=== PATIENT | male | born 1955 | race Caucasian/White ===

== ENCOUNTER → 2016-09-23 | Outpatient (CLI) | payer OTHER ==
[~2016-09-23] MED LIST: ALPR-138 PO; ASPI81TA82 PO; BUPR150T3 PO; LISI-360 PO; METO25 PO; NAPR500 PO; TOPR50TA PO; VALT500T PO
[2016-09-23 15:34] LABS: HEMATOCRIT 45.9 % (39.0-51.0); MEAN CELL VOLUME 89.3 FL (80.0-100.0); MEAN CORPUSCULAR HEMOGLOBIN 29.1 PG (27.0-34.0); MEAN CORPUSCULAR HGB CONC 32.6 % (32.0-36.0); PLATELET COUNT 191 TH/MM3 (150-450); RED BLOOD COUNT 5.14 MIL/MM3 (4.50-5.90); RED CELL DISTRIBUTION WIDTH 13.4 % (11.6-17.2); REVIEW FLAG FINAL; WHITE BLOOD COUNT 5.4 TH/MM3 (4.0-11.0)
[2016-09-23 16:58] LABS: ALT (GPT) 30 U/L (12-78); ANION GAP 7 MEQ/L (5-15); AST (GOT) 21 U/L (15-37); BICARBONATE 27.6 MEQ/L (21.0-32.0); BLOOD UREA NITROGEN 18 MG/DL (7-18); CHLORIDE 106 MEQ/L (98-107); GLOMERULAR FILTRATION RATE 68 ML/MIN (>89); GLUCOSE,FASTING 94 MG/DL (74-99); POTASSIUM 4.4 MEQ/L (3.5-5.1); SODIUM (NA) 141 MEQ/L (136-145)
[2016-09-23 17:07] LABS: ALKALINE PHOSPHATASE 55 U/L (45-117); FREE T4 0.97 NG/DL (0.76-1.46); HDL CHOLESTEROL 41.8 MG/DL (40.0-60.0); LDL CHOLESTEROL 123 MG/DL (0-99); TOTAL BILIRUBIN ADULT 0.4 MG/DL (0.2-1.0)
== END ==
LOC: PLAB 12:23
PROVIDERS: ATTEND Family Medicine
DX: I10 Essential (primary) hypertension (principal); E78.5 Hyperlipidemia, unspecified; I48.91 Unspecified atrial fibrillation; R73.01 Impaired fasting glucose; M17.9 Osteoarthritis of knee, unspecified; Z12.5 Encounter for screening for malignant neoplasm of prostate; Z68.31 Body mass index [BMI] 31.0-31.9, adult
CPT/HCPCS: 80053; 80061; 84153; 84439; 84443; 85027

== ENCOUNTER → 2017-02-04 | Outpatient (CLI) | payer OTHER ==
[~2017-02-04] MED LIST changes: +ALPR0.25 PO; +ALPR0.5T3 PO; +ASPI325T PO; +ASPI81CH PO; +BUPR100T4 PO; +BUPR150CR PO; +CIAL20TA PO; +LISI10TA3 PO; +METO50TA PO; +MULTTAB67 PO; +NAPR500T PO; +TIMO0.5S30 RIGHT EYE; +VALA500T PO
[2017-02-04 16:18] LABS: ANION GAP 5 MEQ/L (5-15); AST (GOT) 22 U/L (15-37); BICARBONATE 28.6 MEQ/L (21.0-32.0); BLOOD UREA NITROGEN 15 MG/DL (7-18); CHLORIDE 107 MEQ/L (98-107); GLOMERULAR FILTRATION RATE 69 ML/MIN (>89); GLUCOSE,FASTING 94 MG/DL (74-99); POTASSIUM 4.6 MEQ/L (3.5-5.1); SODIUM (NA) 141 MEQ/L (136-145)
[2017-02-04 16:19] LABS: HEMATOCRIT 43.6 % (39.0-51.0); MEAN CELL VOLUME 90.4 FL (80.0-100.0); MEAN CORPUSCULAR HEMOGLOBIN 29.5 PG (27.0-34.0); MEAN CORPUSCULAR HGB CONC 32.6 % (32.0-36.0); PLATELET COUNT 214 TH/MM3 (150-450); RED BLOOD COUNT 4.83 MIL/MM3 (4.50-5.90); RED CELL DISTRIBUTION WIDTH 13.8 % (11.6-17.2); REVIEW FLAG FINAL; WHITE BLOOD COUNT 5.5 TH/MM3 (4.0-11.0)
[2017-02-04 16:29] LABS: ALKALINE PHOSPHATASE 61 U/L (45-117); ALT (GPT) 36 U/L (12-78); HDL CHOLESTEROL 39.4 MG/DL (40.0-60.0); LDL CHOLESTEROL 113 MG/DL (0-99); TOTAL BILIRUBIN ADULT 0.4 MG/DL (0.2-1.0)
== END ==
LOC: PLAB 11:58
PROVIDERS: ATTEND Family Medicine
DX: I10 Essential (primary) hypertension (principal); E78.5 Hyperlipidemia, unspecified; I48.91 Unspecified atrial fibrillation; R73.01 Impaired fasting glucose; M17.9 Osteoarthritis of knee, unspecified; Z68.30 Body mass index [BMI] 30.0-30.9, adult
CPT/HCPCS: 80053; 80061; 84443; 85027

== ENCOUNTER 2017-02-17 10:10 | Emergency (ER) | payer OTHER ==
[~2017-02-17] VITALS: Ht 182.9 cm; Wt 100.0 kg
[~2017-02-17 10:10] MED LIST changes: -ALPR0.25 PO; -ALPR0.5T3 PO; -ASPI325T PO; -ASPI81CH PO; -BUPR100T4 PO; -BUPR150CR PO; -CIAL20TA PO; -LISI10TA3 PO; -METO50TA PO; -MULTTAB67 PO; -NAPR500T PO; -TIMO0.5S30 RIGHT EYE; -VALA500T PO
[2017-02-17 10:12] VITALS: BP 174/93; PULSE 73; RESP 18; TEMP 97.5; O2SAT 97
[2017-02-17] MEDS ORDERED: NAPR500T PO (10:26)
[2017-02-17] MEDS ORDERED: CIAL20TA PO (10:26)
[2017-02-17] MEDS ORDERED: BUPR100T4 PO (10:26)
[2017-02-17] MEDS ORDERED: METO50TA PO (10:26)
[2017-02-17] MEDS ORDERED: LISI10TA3 PO (10:26)
[2017-02-17] MEDS ORDERED: ASPI81CH PO (10:26)
[2017-02-17] MEDS ORDERED: ALPR0.5T3 PO (10:26)
[2017-02-17] MEDS ORDERED: TIMO0.5S30 RIGHT EYE (10:26)
[2017-02-17] MEDS ORDERED: SODIUM CHLORIDE 0.9% FLUSH 10 ML FLUSH IVF PRN (10:30)
[2017-02-17 10:44] VITALS: RESP 17; O2SAT 99
[2017-02-17 10:46] VITALS: BP_SYST 143; BP_SYST 151; BP_DIAS 84; BP_DIAS 85; PULSE 66; RESP 17; O2SAT 99
--- NOTE | 2017-02-17 10:48 | PD ---
HPI Chief Complaint: Cardiac Complaint Time Seen by Provider: 10:46 Travel History International Travel<30 days: No Contact w/Intl Traveler<30days: No Traveled to known affect area: No History of Present Illness HPI 61-year-old male patient with history of hypertension, A. fib, status post ablation in 2012, presents to the ER today because he's had several days' history of intermittent palpitations, feels like he has an abnormal heartbeat here in their every few minutes. He denies any chest pains, shortness of breath , dizziness, or any other symptoms. He states he has been working outside in the past few days and thinks that may be a trigger. Modifying Factors: None Associated Signs & Symptoms: Palpitations Risk Factors: None PFSH Past Medical History Hx Anticoagulant Therapy: Yes (asa) Atrial Fibrillation: Yes (CARDIAC ABLATION) Anxiety: Yes Depression: Yes Cardiovascular Problems: Yes (A-FIB) Chest Pain: No Diminished Hearing: No Gastrointestinal Disorders: No Hypertension: Yes Integumentary: No Immunizations Current: Yes Seizures: Yes Thyroid Disease: No Tetanus Vaccination: < 5 Years Influenza Vaccination: No : 0 Past Surgical History Cholecystectomy: Yes Eye Surgery: Yes (RIGHT EYE CATARACT ) Hysterectomy: Yes (htn) Neurologic Surgery: Yes (DEPRESSED SKULL FX 1961) Other Surgery: Yes (GALLBLADDER) Social History Alcohol Use: Yes (3 BEERS MOST DAYS) Tobacco Use: No (quit ) Substance Use: No Allergies-Medications (Allergen,Severity, Reaction): Coded Allergies: No Known Allergies (Unverified , 02/17/17) Reported Meds & Prescriptions Reported Meds & Active Scripts Active Reported Cialis (Tadalafil) 20 Mg Tab 20 Mg PO DAILY PRN Do not exceed 1 dose/day. Timolol Opth Drops 0.5 % Soln 1 Drop RIGHT EYE BID Naproxen 500 Mg Tab 500 Mg PO BID Alprazolam 0.5 Mg Tab 0.5 Mg PO HS PRN Aspirin 81 Mg Chew 81 Mg PO DAILY Bupropion HCl 100 Mg Tab 100 Mg PO BID Lisinopril 10 Mg Tab 10 Mg PO DAILY Metoprolol Tartrate 50 Mg Tab 50 Mg PO DAILY Review of Systems Except as stated in HPI: all other systems reviewed are Neg Physical Exam Narrative GENERAL: Pleasant well-developed male patient currently in no acute distress at awake and oriented 3. SKIN: Focused skin assessment warm/dry. HEAD: Atraumatic. Normocephalic. EYES: Pupils equal and round. No scleral icterus. No injection or drainage. ENT: No nasal bleeding or discharge. Mucous membranes pink and moist. NECK: Trachea midline. No JVD. CARDIOVASCULAR: Regular rate and rhythm. No murmur appreciated. Pulses are present and equal bilaterally. RESPIRATORY: No accessory muscle use. Clear to auscultation. Breath sounds equal bilaterally. GASTROINTESTINAL: Abdomen soft, non-tender, nondistended. Hepatic and splenic margins not palpable. MUSCULOSKELETAL: No obvious deformities. No clubbing. No cyanosis. No edema. NEUROLOGICAL: Awake and alert. No obvious cranial nerve deficits. Motor grossly within normal limits. Normal speech. PSYCHIATRIC: Appropriate mood and affect; insight and judgment normal. Data Data Last Documented VS Vital Signs Date Time Temp Pulse Resp B/P (MAP) Pulse Ox O2 Delivery O2 Flow Rate FiO2 02/17/17 10:46 66 17 151/84 (106) 99 Room Air 143/85 (104) 02/17/17 10:12 97.5 Orders Orders Electrocardiogram (02/17/17 ) Electrocardiogram (02/17/17 10:26) Ckmb (Isoenzyme) Profile (02/17/17 10:26) Complete Blood Count With Diff (02/17/17 10:26) Comprehensive Metabolic Panel (02/17/17 10:26) Magnesium (Mg) (02/17/17 10:26) Prothrombin Time / Inr (Pt) (02/17/17 10:26) Act Partial Throm Time (Ptt) (02/17/17 10:26) Troponin I (02/17/17 10:26) Chest, Single Ap (02/17/17 10:26) Ecg Monitoring (02/17/17 10:26) Bilateral Bp Monitoring (02/17/17 10:26) Iv Access Insert/Monitor (02/17/17 10:26) Oximetry (02/17/17 10:26) Oxygen Administration (02/17/17 10:26) Sodium Chloride 0.9% Flush (Ns Flush) (02/17/17 10:30) Labs Laboratory Tests Test 02/17/17 10:42 White Blood Count 6.6 TH/MM3 Red Blood Count 4.86 MIL/MM3 Hemoglobin 14.6 GM/DL Hematocrit 43.6 % Mean Corpuscular Volume 89.7 FL Mean Corpuscular Hemoglobin 30.0 PG Mean Corpuscular Hemoglobin Concent 33.4 % Red Cell Distribution Width 13.2 % Platelet Count 259 TH/MM3 Mean Platelet Volume 8.5 FL Neutrophils (%) (Auto) 70.1 % Lymphocytes (%) (Auto) 18.8 % Monocytes (%) (Auto) 6.4 % Eosinophils (%) (Auto) 4.0 % Basophils (%) (Auto) 0.7 % Neutrophils # (Auto) 4.6 TH/MM3 Lymphocytes # (Auto) 1.2 TH/MM3 Monocytes # (Auto) 0.4 TH/MM3 Eosinophils # (Auto) 0.3 TH/MM3 Basophils # (Auto) 0.0 TH/MM3 CBC Comment DIFF FINAL Differential Comment Prothrombin Time 11.2 SEC Prothromb Time International Ratio 1.0 RATIO Activated Partial Thromboplast Time 29.2 SEC Blood Urea Nitrogen 19 MG/DL Creatinine 1.17 MG/DL Random Glucose 110 MG/DL Total Protein 7.5 GM/DL Albumin 4.3 GM/DL Calcium Level 8.9 MG/DL Magnesium Level 2.3 MG/DL Alkaline Phosphatase 64 U/L Aspartate Amino Transf (AST/SGOT) 17 U/L Alanine Aminotransferase (ALT/SGPT) 30 U/L Total Bilirubin 0.5 MG/DL Sodium Level 138 MEQ/L Potassium Level 3.8 MEQ/L Chloride Level 105 MEQ/L Carbon Dioxide Level 26.3 MEQ/L Anion Gap 7 MEQ/L Estimat Glomerular Filtration Rate 63 ML/MIN Total Creatine Kinase 85 U/L Troponin I 0.02 NG/ML MDM Medical Decision Making Medical Screen Exam Complete: Yes Emergency Medical Condition: Yes Medical Record Reviewed: Yes Interpretation(s) EKG shows NSR, no ST elevation or depression, and no arrhythmias. No significant T-wave inversions. Laboratory Tests Test 02/17/17 10:42 Neutrophils (%) (Auto) 70.1 % (16.0-70.0) Blood Urea Nitrogen 19 MG/DL (7-18) Random Glucose 110 MG/DL (74-106) Estimat Glomerular Filtration Rate 63 ML/MIN (>89) Differential Diagnosis palpitations: Dysrhythmias versus dehydration versus electrolyte abnormalities Narrative Course Lab work, chest x-ray, and EKG did not show any signs of abnormal issues. There are no significant signs of dysrhythmias on EKG. Vital signs are stable in the ER. At this point, I do not see any significant dysrhythmias or any obvious triggers for this issue. Patient did not have any further episodes while in the ER and telemetry was essentially unremarkable while he was here. My plan would be to release him with follow-up to primary care physician and cardiology. Return for any worsening in symptoms as necessary. Drink plenty of fluids, stay hydrated, and avoid caffeine and alcoholic beverages for now. The plan was discussed with the patient and he states understanding. Diagnosis Primary Impression: Palpitations Disposition: 01 DISCHARGE HOME Condition: Stable Gómez Manning MD Feb 17, 2017 10:48
--- NOTE | 2017-02-17 10:55 | RADRPT ---
EXAM DATE/TIME: 02/17/2017 10:46 [facility] COMPARISON: No previous studies available for comparison. INDICATIONS : Palpitations. MEDICAL HISTORY : atrial fibrillation, high bp SURGICAL HISTORY : ablasion ENCOUNTER: Initial ACUITY: 1 day PAIN SCORE: 0/10 LOCATION: Bilateral chest FINDINGS: A single view of the chest demonstrates the lungs to be symmetrically aerated without evidence of mas s, infiltrate or effusion. The cardiomediastinal contours are unremarkable. Osseous structures are intact. CONCLUSION: 1. No acute cardiopulmonary disease. Edgardo Cabrera MD on February 17, 2017 at 10:53 Board Certified Radiologist. This report was verified electronically.
[2017-02-17 11:03] LABS: AUTOMATED NEUTROPHIL # 4.6 TH/MM3 (1.8-7.7); BASOPHIL % 0.7 % (0.0-2.0); EOSINOPHIL # 0.3 TH/MM3 (0-0.4); HEMATOCRIT 43.6 % (39.0-51.0); HEMO FLAGS DIFF FINAL; LYMPH % 18.8 % (9.0-44.0); LYMPHOCYTE # 1.2 TH/MM3 (1.0-4.8); MEAN CELL VOLUME 89.7 FL (80.0-100.0); MEAN CORPUSCULAR HGB CONC 33.4 % (32.0-36.0); MONO % 6.4 % (0.0-8.0); NEUT % 70.1 % (16.0-70.0); PLATELET COUNT 259 TH/MM3 (150-450); RED BLOOD COUNT 4.86 MIL/MM3 (4.50-5.90); RED CELL DISTRIBUTION WIDTH 13.2 % (11.6-17.2); WHITE BLOOD COUNT 6.6 TH/MM3 (4.0-11.0)
[2017-02-17 11:10] LABS: APTT (PATIENT) 29.2 SEC (24.3-30.1); PROTHROMBIN TIME - PATIENT 11.2 SEC (9.8-11.6)
[2017-02-17 11:20] LABS: ALT (GPT) 30 U/L (12-78); ANION GAP 7 MEQ/L (5-15); AST (GOT) 17 U/L (15-37); BICARBONATE 26.3 MEQ/L (21.0-32.0); BLOOD UREA NITROGEN 19 MG/DL (7-18); CHLORIDE 105 MEQ/L (98-107); GLOMERULAR FILTRATION RATE 63 ML/MIN (>89); MAGNESIUM 2.3 MG/DL (1.5-2.5); POTASSIUM 3.8 MEQ/L (3.5-5.1); SODIUM (NA) 138 MEQ/L (136-145)
[2017-02-17 11:23] LABS: ALKALINE PHOSPHATASE 64 U/L (45-117); TOTAL BILIRUBIN ADULT 0.5 MG/DL (0.2-1.0)
[2017-02-17 11:24] LABS: CREATINE KINASE 85 U/L (39-308)
[2017-02-17 11:55] VITALS: BP 136/81; TEMP 97.8
--- NOTE | 2017-02-18 14:41 | EKG ---
Date Performed: 02/17/2017 Time Performed: 10:32:17 PTAGE: 61 years EKG: Sinus rhythm BORDERLINE ECG PREVIOUS TRACING : 09/03/2012 05.24 DOCTOR: Dusty James Interpretating Date/Time 02/18/2017 14:39:16
== END 2017-02-17 11:55 | disposition home or self-care (01) ==
LOC: NEPC 10:10
DX: R00.2 Palpitations (principal); I10 Essential (primary) hypertension; I48.91 Unspecified atrial fibrillation; Z79.899 Other long term (current) drug therapy; Z87.891 Personal history of nicotine dependence
CPT/HCPCS: 71010; 80053; 82550; 83735; 84484; 85025; 85610; 85730; 93005

== ENCOUNTER 2017-02-27 09:53 | Day surgery (SDC) | payer OTHER ==
[~2017-02-27 09:53] MED LIST changes: -ALPR-138 PO; +ALPR0.5T3 PO; +ASPI81CH PO; -ASPI81TA82 PO; +BUPR100T4 PO; -BUPR150T3 PO; +CIAL20TA PO; -LISI-360 PO; +LISI10TA3 PO; -METO25 PO; +METO50TA PO; -NAPR500 PO; +NAPR500T PO; +TIMO0.5S30 RIGHT EYE; -TOPR50TA PO; -VALT500T PO
[2017-02-27] MEDS ORDERED: VALA500T PO (10:38)
[2017-02-27] MEDS ORDERED: ALPR0.25 PO (10:38)
[2017-02-27] MEDS ORDERED: ASPI325T PO (10:38)
[2017-02-27] MEDS ORDERED: MULTTAB67 PO (10:38)
[2017-02-27] MEDS ORDERED: BUPR150CR PO (10:39)
[2017-02-27] MEDS ORDERED: POVIDONE IODINE 5% (ANTISEPSIS KIT) 4 APPLICATIONS EACH NARE SCH (10:45)
[2017-02-27] MEDS ORDERED: MUPIROCIN 2% OINT 1 APPLIC/GM SYR NASAL SCH (10:45)
[2017-02-27] MEDS ORDERED: ceFAZolin 2 GM PREMIX 50 ML IV SCH (10:45)
[2017-02-27] MEDS ORDERED: CHLORHEXIDINE GLUCONATE 2 % 1 PACK (2 CLOTHS) TOPICAL SCH (10:45)
[2017-02-27] MEDS ORDERED: NS 1000 ML IV SCH (11:00)
--- NOTE | 2017-02-27 12:45 | MA ---
cc: VICTOR HUGO EDWARDS MD DATE: 02/27/2017 PROCEDURE Loop recorder insertion. PERFORMING PHYSICIAN Dr. Victor Hugo Edwards. INDICATION Atrial fibrillation management post ablation. DESCRIPTION OF PROCEDURE The patient was brought to the DOC unit in the postabsorptive state. After informed consent was obtained a [employer] LINQ loop recorder was inserted subcutaneously in the left chest. The patient tolerated the procedure well without any apparent complications. Tachybrady pause and atrial fibrillation detection was enabled. The initial R-wave was 0.5 mV. The serial number is [id number]. MD ERNIE PatinoH/ELHAM /12:29 PM /12:40 PM
== END 2017-02-27 13:58 | disposition home or self-care (01) ==
LOC: HDOC 09:53 → HDIC 09:53 → HDOC 13:58
PROVIDERS: ATTEND Nuclear Medicine Nuclear Cardiology
DX: I48.91 Unspecified atrial fibrillation (principal)
CPT/HCPCS: 33282; C1764; J0690

== ENCOUNTER → 2017-06-01 | Outpatient (CLI) | payer OTHER ==
[~2017-06-01] MED LIST changes: +ALPR0.25 PO; -ALPR0.5T3 PO; +ASPI-183 PO; -ASPI81CH PO; -BUPR100T4 PO; +BUPR150CR PO; -CIAL20TA PO; +MULTTAB67 PO; -NAPR500T PO; +NAPR500T2 PO; +VALA500T PO
[2017-06-01 13:53] LABS: HEMATOCRIT 45.7 % (39.0-51.0); HEMOGLOBIN 15.7 GM/DL (13.0-17.0); MEAN CELL VOLUME 89.2 FL (80.0-100.0); MEAN CORPUSCULAR HEMOGLOBIN 30.5 PG (27.0-34.0); MEAN CORPUSCULAR HGB CONC 34.2 % (32.0-36.0); MEAN PLATELET VOLUME 8.9 FL (7.0-11.0); PLATELET COUNT 215 TH/MM3 (150-450); RED BLOOD COUNT 5.13 MIL/MM3 (4.50-5.90); RED CELL DISTRIBUTION WIDTH 13.6 % (11.6-17.2); WHITE BLOOD COUNT 7.1 TH/MM3 (4.0-11.0)
[2017-06-01 14:14] LABS: ALBUMIN 4.5 GM/DL (3.4-5.0); AST (GOT) 17 U/L (15-37); BICARBONATE 28.9 MEQ/L (21.0-32.0); BLOOD UREA NITROGEN 17 MG/DL (7-18); CHLORIDE 107 MEQ/L (98-107); CHOLESTEROL 196 MG/DL (120-200); CREATININE 1.16 MG/DL (0.60-1.30); GLOMERULAR FILTRATION RATE 64 ML/MIN (>89); GLUCOSE,FASTING 92 MG/DL (74-99); SODIUM (NA) 143 MEQ/L (136-145); TRIGLYCERIDES 116 MG/DL (42-150)
[2017-06-01 14:23] LABS: ALKALINE PHOSPHATASE 62 U/L (45-117); ALT (GPT) 32 U/L (12-78); CHOLESTEROL/ HDL RATIO 4.63 RATIO; FREE T4 1.03 NG/DL (0.76-1.46); HDL CHOLESTEROL 42.3 MG/DL (40.0-60.0); LDL CHOLESTEROL 131 MG/DL (0-99); TOTAL BILIRUBIN ADULT 0.5 MG/DL (0.2-1.0); TOTAL PROTEIN 7.6 GM/DL (6.4-8.2)
== END ==
LOC: PLAB 10:51
PROVIDERS: ATTEND Family Medicine
DX: I48.91 Unspecified atrial fibrillation (principal); I10 Essential (primary) hypertension; E78.5 Hyperlipidemia, unspecified; R73.01 Impaired fasting glucose; M17.9 Osteoarthritis of knee, unspecified
CPT/HCPCS: 80053; 80061; 84439; 84443; 85027

== ENCOUNTER → 2017-09-22 | Outpatient (CLI) | payer OTHER ==
[2017-09-22 13:45] LABS: HEMATOCRIT 45.4 % (39.0-51.0); HEMOGLOBIN 15.2 GM/DL (13.0-17.0); MEAN CELL VOLUME 89.5 FL (80.0-100.0); MEAN CORPUSCULAR HGB CONC 33.5 % (32.0-36.0); MEAN PLATELET VOLUME 9.2 FL (7.0-11.0); PLATELET COUNT 202 TH/MM3 (150-450); RED BLOOD COUNT 5.07 MIL/MM3 (4.50-5.90); RED CELL DISTRIBUTION WIDTH 13.5 % (11.6-17.2); WHITE BLOOD COUNT 6.4 TH/MM3 (4.0-11.0)
[2017-09-22 13:52] LABS: ALBUMIN 4.1 GM/DL (3.4-5.0); ALT (GPT) 29 U/L (12-78); AST (GOT) 14 U/L (15-37); BICARBONATE 24.8 MEQ/L (21.0-32.0); BLOOD UREA NITROGEN 19 MG/DL (7-18); CALCIUM 8.7 MG/DL (8.5-10.1); CHLORIDE 109 MEQ/L (98-107); CHOLESTEROL 171 MG/DL (120-200); CREATININE 1.26 MG/DL (0.60-1.30); GLOMERULAR FILTRATION RATE 58 ML/MIN (>89); GLUCOSE,FASTING 93 MG/DL (74-99); SODIUM (NA) 142 MEQ/L (136-145)
[2017-09-22 14:02] LABS: ALKALINE PHOSPHATASE 51 U/L (45-117); CHOLESTEROL/ HDL RATIO 4.95 RATIO; HDL CHOLESTEROL 34.5 MG/DL (40.0-60.0); LDL CHOLESTEROL 115 MG/DL (0-99); TOTAL BILIRUBIN ADULT 0.4 MG/DL (0.2-1.0); TOTAL PROTEIN 8.1 GM/DL (6.4-8.2); TRIGLYCERIDES 107 MG/DL (42-150)
[2017-09-22 16:30] LABS: HEMOGLOBIN A1C 5.4 % (4.3-6.0)
== END ==
LOC: PLAB 10:25
PROVIDERS: ATTEND Family Medicine
DX: I10 Essential (primary) hypertension (principal); E78.5 Hyperlipidemia, unspecified; I48.91 Unspecified atrial fibrillation; R73.01 Impaired fasting glucose; M17.9 Osteoarthritis of knee, unspecified
CPT/HCPCS: 36415; 80053; 80061; 83036; 84443; 85027